=== PATIENT | male | born 1985 | race Caucasian/White ===

== ENCOUNTER 2016-11-14 05:36 | Observation (INO) | payer OTHER ==
[~2016-11-14] VITALS: Ht 182.9 cm; Wt 120.0 kg
[~2016-11-14 05:36] MED LIST: OXYC1TAB3 PO
[2016-11-14] MEDS ORDERED: SODIUM CHLORIDE 0.9% 1000ML 1,000 ML IV STA (05:52)
[2016-11-14] MEDS ORDERED: ONDANSETRON INJ 2 MG/ML 2 ML VIAL IV STA (05:52)
[2016-11-14] MEDS ORDERED: KETOROLAC TROMETHAMINE 30 MG/ML VIAL IV STA (05:52)
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
[2016-11-14 06:10] LABS: BASO % 0.4 %; BASO ABS # 0.05 K/uL (0-0.2); COMPLETE YES; EOS % 2.8 %; IG% 0.2 %; LYMPH % 16.8 %; LYMPH ABS # 1.87 K/uL (1.2-3.4); MEAN CELL VOLUME 84.6 fL (80-100); MEAN CORPUSCULAR HEMOGLOBIN 29.3 pg (25-34); MEAN CORPUSCULAR HGB CONC 34.7 g/dl (32-36); MEAN PLATELET VOLUME 10.6 fL (7.4-10.4); MONO % 8.1 %; NEUT % 71.7 %; PLATELET COUNT 257 K/uL (130-400); RED BLOOD COUNT 5.08 M/uL (4.7-6.1); WHITE BLOOD COUNT 11.12 K/uL (4.8-10.8)
[2016-11-14] MEDS ORDERED: [UNRECOGNIZED DRUG - OTHER] PO (06:13)
[2016-11-14 06:25] LABS: MANUAL MICROSCOPIC REQUIRED? YES; URINE APPEARANCE CLEAR (CLEAR); URINE BILIRUBIN NEG (NEG); URINE COLOR YELLOW; URINE NITRITE NEG (NEG); URINE SPECIFIC GRAVITY 1.015 (1.000-1.030); UROBILINOGEN NEG (NEG)
[2016-11-14 06:26] LABS: REVIEW REQ? NO
[2016-11-14 06:29] LABS: CREATININE 1.2 mg/dl (0.60-1.40)
[2016-11-14 06:30] LABS: BUN/CREATININE RATIO 15.2 (10-20); CALCIUM 9.8 mg/dl (8.5-10.1); POTASSIUM 3.3 mmol/L (3.5-5.1)
[2016-11-14] MEDS ORDERED: TAMSULOSIN HCL 0.4 MG CAP PO ONE (06:30)
[2016-11-14] MEDS ORDERED: MoRPHine SULFATE 4 MG/ML 1 ML CARP\\VIAL IV PRN (06:30)
[2016-11-14 06:36] LABS: URINE BACTERIA NEG (NEG)
--- NOTE | 2016-11-14 07:06 | DIAGNOSTIC IMAGING REPORT ---
CT SCAN OF THE ABDOMEN AND PELVIS WITHOUT CONTRAST CLINICAL HISTORY: Left flank pain COMPARISON STUDY: 05/30/2011 TECHNIQUE: CT scan of the abdomen and pelvis was performed from the lung bases to the proximal femurs. Images are reviewed in the axial, sagittal, and coronal planes. IV contrast was not administered for this examination. CT DOSE: 1758.97 mGy.cm FINDINGS: Lower chest: The heart is normal in size and configuration, without pericardial effusion. The lung bases and pleural spaces are clear. Liver: The unenhanced liver is normal in size, contour, and attenuation. There is no intrahepatic biliary ductal dilatation. Gallbladder: Equivocal small gallstones. Spleen: Normal in size and attenuation. Pancreas: Unremarkable. Adrenal glands: Unremarkable. Kidneys: No renal calculi are visualized. There is left-sided hydronephrosis and hydroureter. There is a 10 x 6 x 5 mm proximal left ureteral calculus at the L4-5 level. Bowel: There are no transition zones indicate bowel obstruction. The appendix appears normal. There is no acute diverticulitis. Peritoneum: There is no intraperitoneal free air or abdominal ascites. Vasculature: The abdominal aorta is normal in course and caliber. Adenopathy: None. Pelvic viscera: The bladder, and pelvic viscera are unremarkable. Skeletal structures: No destructive osseous lesions are seen. IMPRESSION: 10 x 6 x 5 mm proximal left ureteral calculus at the L4-5 level with secondary obstructive changes. Electronically signed by: Fabián Jacobo M.D. 11/14/2016 7:04 AM Dictated Date/Time: 11/14/2016 6:59 AM
[2016-11-14] MEDS ORDERED: ONDANSETRON INJ 2 MG/ML 2 ML VIAL IV PRN (08:15)
[2016-11-14] MEDS ORDERED: SODIUM CHLORIDE 0.9% 1000ML 1,000 ML IV SCH (08:15)
[2016-11-14] MEDS ORDERED: ACETAMINOPHEN 325 MG TAB PO PRN (08:15)
[2016-11-14] MEDS ORDERED: MoRPHine SULFATE 4 MG/ML 1 ML CARP\\VIAL IM PRN (08:15)
[2016-11-14] MEDS ORDERED: POLYETHYLENE (MIRALAX) 17 GM PACK PO PRN (08:45)
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
[2016-11-14 09:40] VITALS: BP 124/64; PULSE 74; TEMP 36.6; O2SAT 98; Ht 182.9 cm; Wt 120.0 kg
[2016-11-14] MEDS ORDERED: POTASSIUM CHLR 10 MEQ / WTR 10 MEQ in PREMIXED WATER 100 ML IV ONE (10:30)
[2016-11-14] MEDS: NSS + 20MEQ KCL 1000ML 1,000 ML IV SCH ×2 (11:12→18:53)
[2016-11-14 15:40] VITALS: BP 153/83; PULSE 84; TEMP 36.5; O2SAT 99
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
[2016-11-14] MEDS ORDERED: FLM4 PO (17:43)
[2016-11-14] MEDS ORDERED: OXYC-57 PO ×2 (17:43→18:37)
--- NOTE | 2016-11-14 17:50 | Discharge Instructions ---
Discharge Instructions Admission Reason for Admission: Kidney Stone Discharge Discharge Diagnosis / Problem: Ureterolithiasis, hydronephrosis Discharge Goals Goal(s): Improve disease control, Therapeutic intervention Activity Recommendations Activity Limitations: resume your previous activity . Instructions / Follow-Up Instructions / Follow-Up You have a large kidney stone on the left side. You will need to follow up with Urology for lithotripsy of your stone. Please take the Flomax every day to help with the stone passage and you can take oxycodone as needed for pain. Please drink plenty of fluids. If you have a fever or severe pain, persistent nausea or vomiting, please return immediately to the ER. Current Hospital Diet Patient's current hospital diet: Regular Diet Discharge Diet Recommended Diet: Regular Diet Procedures Procedures Performed: CT abdomen/pelvis Pending Studies Studies pending at discharge: yes List of pending studies: Urine culture Medical Emergencies . Who to Call and When: Medical Emergencies: If at any time you feel your situation is an emergency, please call 911 immediately. . Non-Emergent Contact Non-Emergency issues call your: Primary Care Provider, Urologist Call Non-Emergent contact if: temperature is above 101, your pain is worsening , your pain is unusual for you, your pain is concerning you, you have any medication questions . . "Provider Documentation" section prepared by Kary Orta. VTE Core Measure Inpt VTE Proph given/why not?: SCD's [place] Drug Monitoring Program Search Results: patient reviewed within database
--- NOTE | 2016-11-14 19:54 | DIAGNOSTIC IMAGING REPORT ---
CHEST 2 VIEWS ROUTINE CLINICAL HISTORY: Preoperative evaluation. COMPARISON STUDY: No previous studies for comparison. FINDINGS: Lung volumes are normal. Lungs are clear. There is no pneumothorax or pleural effusion. Cardiac size is normal. Mediastinal contours are normal. There is no evidence of pulmonary edema. IMPRESSION: No acute cardiopulmonary findings. Electronically signed by: Collins Gagnon M.D. 11/14/2016 7:52 PM Dictated Date/Time: 11/14/2016 7:52 PM
--- NOTE | 2016-11-14 19:58 | DIAGNOSTIC IMAGING REPORT ---
KUB CLINICAL HISTORY: Ureteral stone. COMPARISON STUDY: CT of the abdomen and pelvis November 14, 2016 6:22 AM FINDINGS: This study is compromised by motion artifact. The left ureteral calculus shown on CT from earlier today may be visualized and projects just superior to the left transverse process of L5 within the proximal left ureter. No additional urinary calculi are identified. IMPRESSION: Study compromised by motion artifact. Suspected visualization of the 1.1 cm proximal left ureteral calculus, just superior to the left transverse process of L5. Electronically signed by: Collins Gagnon M.D. 11/14/2016 7:56 PM Dictated Date/Time: 11/14/2016 7:53 PM
[2016-11-14 20:10] VITALS: BP 153/83; PULSE 84; TEMP 36.5; O2SAT 99
[2016-11-14] MEDS ORDERED: TAMSULOSIN HCL 0.4 MG CAP PO SCH (21:00)
--- NOTE | 2016-11-14 22:46 | Discharge Summary ---
Discharge Summary Admission Date: Nov 14, 2016 at 08:08 Discharge Date: Nov 14, 2016 Discharge Disposition: Home Principal Diagnosis: urolithiasis Problems/Secondary Diagnoses: hypokalemia Consultations: Urology (Marta Sy MD) Medication Reconciliation New Medications: Oxycodone/Acetaminophen 5MG/325MG (Percocet 5MG/325MG) Tab 1 TABLET PO Q4H PRN for Pain, #15 TAB Tamsulosin HCl (Tamsulosin HCl) 0.4 Mg Cap 0.4 MG PO HS, #10 CAP Discontinued Medications: [renavive supplement] () 1 DOSE PO BID Referrals At Discharge Follow up Referrals: Urologist Referral - Within 1-2 Weeks with Wilian Plascencia MD, Urology Discharge Exam Review of Systems: Constitutional: No chills, No fever Eyes: No worsening of vision ENT: No hearing loss Respiratory: No cough, No shortness of breath, No sputum, No wheezing Cardiovascular: No chest pain Abdomen: No nausea, No pain, No vomiting Genitourinary - Male: No dysuria, No hematuria, No urinary frequency, No urinary urgency Physical Exam: General Appearance: WD/WN, no apparent distress Eyes: normal inspection ENT: normal ENT inspection, hearing grossly normal Neck: supple Respiratory/Chest: chest non-tender, lungs clear, normal breath sounds, no respiratory distress Cardiovascular: regular rate, rhythm Abdomen / GI: normal bowel sounds, non tender, soft Extremities: normal inspection, no calf tenderness Neurologic/Psychiatric: alert, normal mood/affect, oriented x 3 Skin: normal color (Marta Sy MD) Hospital Course 30 y/o M with PMH of kidney stones here with c/o left sided flank pain which started 2 hours [employer], 4/10, left flank pain radiating to groin. has some nausea but no vomiting. denies hematuria, dysuria, frequency, urgency. No fevers/chills. was seen in the ER in July 2016 for kidney stone and was recommended to follow up with Urology . He was advised to get lithotripsy but he did not follow up for the procedure Left sided urolithiasis with hydronephrosis and hydroureter: CT abdomen/pelvis: 10 x 6 x 5 mm proximal left ureteral calculus at the L4-5 level with secondary obstructive changes. UA positive for 2+ blood - NPO - IVF - Morphine 4 mg q4h - Zofran - Flomax - strain all urine - Urology consult Hypokalemia: K at 3.3 Kcl 10 meq 20 meq added to IVF Treatment options discussed with the pt by the Urology team , ESWL vs URS. Trial of passage has proven uneffective up until this point, and not recommended considering size of stone. The pt prefers ESWL. Next available would not be until at least next week. He verbalizes understanding, and desires discharge and to f/u as an outpatient to schedule ESWL. - Recommend he continue Flomax. - Pre-op KUB, UC&S, chest x-ray, and EKG while inpatient as he has a hx of poor compliance. - outpatient f/u early next week to schedule ESWL. Total Time Spent: Greater than 30 minutes This includes examination of the patient, discharge planning, medication reconciliation, and communication with other providers. (Marta Sy MD) Discharge Instructions Please refer to the electronic Patient Visit Report (Discharge Instructions) for additional information. (Marta Sy MD) Follow-Up Follow up with Urology in 1 week (Marta Sy MD) Reviewed: Pt Seen/Exam by Me, [facility] Notes, Labs, RAD, EKG (Kary Orta MD) History Resident Physician Supervision Note: I interviewed and examined the patient. Discussed with Dr. Sy and agree with findings and plan as documented in the note. Any exceptions or clarifications are listed here: [None] Documented By: Kary Orta (Kary Orta MD)
[2016-11-19] MEDS ORDERED: OXYC-57 PO (09:38)
[2016-11-19] MEDS ORDERED: TAMS0.4C38 PO (09:38)
[2016-11-22] MEDS ORDERED: OXYC-57 PO (13:51)
== END 2016-11-14 20:15 | disposition home or self-care (01) ==
LOC: ENRESERVDT → ENRESERVTM → C.EDB 05:37 → C.MSN 08:08
PROVIDERS: ADMIT Family Medicine; ATTEND Family Medicine
DX: N13.2 Hydronephrosis with renal and ureteral calculous obstruction (principal); E87.6 Hypokalemia; F17.220 Nicotine dependence, chewing tobacco, uncomplicated; Z82.49 Family history of ischemic heart disease and other diseases of the circulatory system

== ENCOUNTER → 2016-11-22 | Day surgery (SDC) | payer OTHER ==
[2016-11-19 09:38] VITALS: Ht 182.9 cm; Wt 115.9 kg
[~2016-11-22] VITALS: Ht 182.9 cm; Wt 115.9 kg
[~2016-11-22] MED LIST changes: +ATROPINE SULFATE 0.1 MG/ML 5ML SYR IV PRN; +CIPROFLOXACIN 400MG / D5W IV SCH; +DEXAMETHASONE SOD INJ 4 MG/ML VIAL IV PRN; +DEXAMETHASONE SOD INJ 4 MG/ML VIAL ONE; +EpHEDrine SULFATE INJ 50 MG/ML AMP IV PRN; +FENTANYL CITRATE INJ 50 MCG/1 ML 2 ML VIAL IV PRN; +FENTANYL CITRATE INJ 50 MCG/1 ML 2 ML VIAL ONE; +GLYCOPYRROLATE INJ 0.2 MG/ML VIAL ONE; +KETOROLAC TROMETHAMINE 30 MG/ML VIAL IV. PRN; +LABETALOL HCL IV 5 MG/ML 20ML IV PRN; +LACTATED RINGER'S 1000ML 1,000 ML IV SCH; +LIDOCAINE HCL 2% 2 ML VIAL (20MG/ML) ONE; +METOCLOPRAMIDE HCL INJ 5 MG/ML 2 ML VIAL IV PRN; +MIDAZOLAM HCL 1 MG/ML 2ML VIAL ONE; +MoRPHine SULFATE 10 MG/ML CARP/VIAL IV PRN; +ONDANSETRON INJ 2 MG/ML 2 ML VIAL IV PRN; +ONDANSETRON INJ 2 MG/ML 2 ML VIAL ONE; +OXYC-57 PO; -OXYC1TAB3 PO; +OXYCODONE/ACETAMINOPHEN 5-325 TAB PO PRN; +PHENYLEPHRINE 100MCG/ML 5ML SYR IV PRN; +PROPOFOL IV EMULSION 10 MG/ML 20 ML VIAL IV ONE; +SODIUM CHLORIDE 0.9% 1000ML 1,000 ML IV SCH; +TAMS0.4C38 PO
--- NOTE | 2016-11-22 10:37 | DIAGNOSTIC IMAGING REPORT ---
KUB CLINICAL HISTORY: Ureteral calculus COMPARISON STUDY: 11/14/2016 FINDINGS: The bowel gas pattern is unremarkable. There is a 9 mm proximal left ureteral calculus at the L4 level, unchanged in position. IMPRESSION: Stable 9 mm proximal left ureteral calculus at the L4 level. Electronically signed by: Fabián Jacobo M.D. 11/22/2016 10:36 AM Dictated Date/Time: 11/22/2016 10:34 AM
--- NOTE | 2016-11-22 11:55 | History & Physical Bridge Note ---
H&P Re-Evaluation Bridge Note: I have examined the patient, reviewed the History & Physical and in the interval since the performance of the History & Physical I have noted the following changes of clinical significance: No changes noted Pt essentially having a panic attack in the pre-op area - I explained and discussed the surgery with the patient and his . We have candidly discussed the risks and benefits. He seems to be feeling a bit better. We will plan to move forward with the surgery.
--- NOTE | 2016-11-22 13:54 | Discharge Instructions ---
Discharge Instructions Admission Reason for Admission: Left Stones Discharge Discharge Diagnosis / Problem: stones Discharge Goals Goal(s): Decrease discomfort, Improve function, Increase independence, Improve disease control Activity Recommendations Activity Limitations: resume your previous activity Lifting Limitations: none Exercise/Sports Limitations: none May Resume Sexual Activity: when tolerated Shower/Bathe: no limitations Driving or Machine Use: no limitations (as long as you are off of pain meds) . Discharge Diet Recommended Diet: Regular Diet Procedures Procedures Performed: Left Extracorporeal Shock Wave Lithotripsy Pending Studies Studies pending at discharge: no Medical Emergencies . Who to Call and When: Medical Emergencies: If at any time you feel your situation is an emergency, please call 911 immediately. . Non-Emergent Contact Non-Emergency issues call your: Urologist Call Non-Emergent contact if: you have a fever, temperature is above 101.5, your pain is not controlled, your pain is worsening . . "Provider Documentation" section prepared by Tony Scruggs. VTE Core Measure Inpt VTE Proph given/why not?: Treatment not indicated
--- NOTE | 2016-11-22 14:11 | [facility] Post Operative Brief Note ---
Immediate Operative Summary Operative Date Nov 22, 2016. Pre-Operative Diagnosis Left Ureteral Calculi Post-Operative Diagnosis Same Procedure(s) Performed Left Extracorporeal Shock Wave Lithotripsy Surgeon Dr. Genesis Josue Rn Or Lvn Surgeon(s) None Estimated Blood Loss 0 mL Findings L mid ureteral stone - appeared to fragment very nicely Specimens None Drains none Anesthesia gen Complication(s) None Disposition Recovery Room / PACU (stable)
[2016-11-22 14:45] VITALS: TEMP 36.4
--- NOTE | 2016-11-22 15:00 | Anesthesia Progress Nt - [facility] ---
Anesthesia Post Op Note Date & Time Nov 22, 2016 at 15:00 Vital Signs Pain Intensity: 0 Vital Signs Past 12 Hours Date Time Temp Pulse Resp B/P Pulse Ox O2 Delivery O2 Flow Rate FiO2 11/22/16 14:45 36.4 61 16 122/72 98 Room Air 11/22/16 14:44 36.4 11/22/16 14:41 76 15 99 11/22/16 14:41 76 15 11/22/16 14:38 Room Air 11/22/16 14:38 132/85 11/22/16 14:36 71 10 11/22/16 14:36 72 10 100 11/22/16 14:33 132/89 11/22/16 14:31 65 5 100 11/22/16 14:31 64 5 11/22/16 14:28 128/94 11/22/16 14:26 64 10 100 11/22/16 14:26 65 10 11/22/16 14:23 126/89 11/22/16 14:21 65 5 11/22/16 14:21 66 5 100 11/22/16 14:18 36.3 65 16 132/91 100 Diffusion Mask 6 11/22/16 10:42 36.7 73 20 137/94 100 Room Air Notes Mental Status: alert / awake / arousable, participated in evaluation Pt Amnestic to Procedure: Yes Nausea / Vomiting: adequately controlled Pain: adequately controlled Airway Patency, RR, SpO2: stable & adequate BP & HR: stable & adequate Hydration State: stable & adequate Anesthetic Complications: no major complications apparent
[2016-11-22 15:03] VITALS: BP 126/79; PULSE 65; O2SAT 99
--- NOTE | 2016-11-22 16:02 | OPERATIVE REPORT ---
DATE OF OPERATION: 11/22/2016 PREOPERATIVE DIAGNOSIS: Left ureteral calculus. POSTOPERATIVE DIAGNOSIS: Left ureteral calculus. PROCEDURE PERFORMED: Left extracorporeal shockwave lithotripsy. SURGEON: Dr. Cole Josue. ANESTHESIA: General. ESTIMATED BLOOD LOSS: 0. URINE OUTPUT: Not recorded. SPECIMENS: None. DRAINS: None. COMPLICATIONS: There were no complications. DESCRIPTION OF THE PROCEDURE: Gene Quinonez was identified in the preoperative holding area. Appropriate informed consents were reviewed and completed and the patient was transported to the operating suite. He received appropriate general anesthesia and ciprofloxacin. After induction of general anesthesia, his left ureteral calculus was identified and was targeted with the lithotripter. A total of 3000 shocks were delivered to the stone. Further details can be found on the [facility] information sheet. However, in some the stone appeared to fragment extremely well. At the conclusion of the case, he was extubated and taken to the PACU in stable condition. I attest to the content of the Intraoperative Record and any orders documented therein. Any exceptio ns are noted below.
== END | disposition home or self-care (01) ==
LOC: C.RAD1850 09:20
PROVIDERS: ATTEND Urology
DX: N20.1 Calculus of ureter (principal)

== ENCOUNTER → 2016-12-02 | Outpatient (CLI) | payer OTHER ==
[~2016-12-02] MED LIST changes: -ATROPINE SULFATE 0.1 MG/ML 5ML SYR IV PRN; -CIPROFLOXACIN 400MG / D5W IV SCH; -DEXAMETHASONE SOD INJ 4 MG/ML VIAL IV PRN; -DEXAMETHASONE SOD INJ 4 MG/ML VIAL ONE; -EpHEDrine SULFATE INJ 50 MG/ML AMP IV PRN; -FENTANYL CITRATE INJ 50 MCG/1 ML 2 ML VIAL IV PRN; -FENTANYL CITRATE INJ 50 MCG/1 ML 2 ML VIAL ONE; -GLYCOPYRROLATE INJ 0.2 MG/ML VIAL ONE; -KETOROLAC TROMETHAMINE 30 MG/ML VIAL IV. PRN; -LABETALOL HCL IV 5 MG/ML 20ML IV PRN; -LACTATED RINGER'S 1000ML 1,000 ML IV SCH; -LIDOCAINE HCL 2% 2 ML VIAL (20MG/ML) ONE; -METOCLOPRAMIDE HCL INJ 5 MG/ML 2 ML VIAL IV PRN; -MIDAZOLAM HCL 1 MG/ML 2ML VIAL ONE; -MoRPHine SULFATE 10 MG/ML CARP/VIAL IV PRN; -ONDANSETRON INJ 2 MG/ML 2 ML VIAL IV PRN; -ONDANSETRON INJ 2 MG/ML 2 ML VIAL ONE; -OXYCODONE/ACETAMINOPHEN 5-325 TAB PO PRN; -PHENYLEPHRINE 100MCG/ML 5ML SYR IV PRN; -PROPOFOL IV EMULSION 10 MG/ML 20 ML VIAL IV ONE; -SODIUM CHLORIDE 0.9% 1000ML 1,000 ML IV SCH
--- NOTE | 2016-12-02 08:36 | DIAGNOSTIC IMAGING REPORT ---
KUB CLINICAL HISTORY: Nephrolithiasis. FINDINGS: 2 AP abdominal radiographs are compared to study dated 11/22/2016 and correlated with abdominal CT dated 05/30/2011. There is a nonobstructed abdominal bowel gas pattern. Moderate colonic fecal retention is observed. The calculus projecting over the mid left ureter seen on 11/22/2016 is no longer identified. No definite renal calculi are seen on today's examination. Small phleboliths are present in the pelvis. The bony structures appear intact. IMPRESSION: No definite renal calculi are seen on today's examination. The large obstructing calculus in the mid left ureter seen on 11/22/2016 is no longer visualized. Electronically signed by: Phong Mcknight M.D. 12/02/2016 8:34 AM Dictated Date/Time: 12/02/2016 8:30 AM
== END | disposition home or self-care (01) ==
LOC: C.RAD 07:50
PROVIDERS: ATTEND Urology
DX: N20.0 Calculus of kidney (principal)

== ENCOUNTER → 2016-12-03 | Outpatient (CLI) | payer OTHER | END | disposition home or self-care (01) | LOC: C.LABSPEC 17:28 | PROVIDERS: ATTEND Urology | DX: N20.0 Calculus of kidney (principal) ==